=== PATIENT | female | born 2000 | race Caucasian/White ===

== ENCOUNTER 2020-01-12 21:50 | Emergency (ER) | payer OTHER ==
[2020-01-12] MEDS ORDERED: NORMAL SALINE 1000 ML 1,000 ML IV ONE (22:54)
[2020-01-12] MEDS ORDERED: ONDANSETRON HCL INJ/PF 4 MG/2 ML SDV IV ONE (22:56)
--- NOTE | 2020-01-12 23:03 | ER Document Report ---
ED General - General Chief Complaint: Nausea/Vomiting/Diarrhea Stated Complaint: NAUSEA/VOMITING Time Seen by Provider: 01/12/20 22:47 - HPI Notes: Patient is a 19-year-old female who presents to the emergency department for evaluation of nausea, vomiting, diarrhea. She states she was eating raw cookie dough yesterday. She started having nausea, vomiting, diarrhea. She states has had at least 20 episodes of each. Her emesis is non-bilious. She states she did see some red streaks in her last few episodes of emesis. She states she believes she seriously dehydrated. She has had nothing but watery diarrhea, with nearly every episode of vomiting. She has some crampy abdominal pain that happens right before her emesis. She denies any urinary symptoms. - Related Data Allergies/Adverse Reactions: No Known Allergies Allergy (Unverified 01/12/20 22:02) Home Medications: None Past Medical History - General Information source: Patient - Social History Smoking Status: Current Every Day Smoker Family History: Malignancy - Thyroid cancer, cervical cancer, Other - Rheumatoid arthritis Patient has suicidal ideation: No Patient has homicidal ideation: No Past Surgical History: Reports: Hx Adenoidectomy, Hx Myringotomy, Hx Tonsillectomy Review of Systems - Review of Systems Gastrointestinal: See HPI -: Yes All other systems reviewed and negative Physical Exam - Vital signs Vitals: Temp Pulse Resp BP Pulse Ox 99.9 F 112 H 16 137/76 H 94 01/12/20 22:01 01/12/20 22:01 01/12/20 22:01 01/12/20 22:01 01/12/20 22:01 - Notes Notes: Vital signs reviewed, please refer to chart. Head is normocephalic, atraumatic. Pupils equal round, reactive to light. Neck is supple without meningismus. Heart is regular rate and rhythm. Lungs are clear to auscultation bilaterally. Abdomen is soft, diffusely tender without rebound or guarding, normoactive bowel sounds throughout. Extremities without cyanosis, clubbing. Posterior calves are nontender. Peripheral pulses are equal. Skin is warm and dry. Patient is awake, alert, neurological exam is nonfocal. Course - Re-evaluation Re-evalutation: 01/12/20 23:01 Patient presents emergency department for evaluation of nausea, vomiting, diarrhea. Even if she has Salmonella from her cookie dough ingestion, she is young and healthy, this will likely be self-limited. We will give the patient some fluids, Zofran, and reassess. 01/13/20 00:30 Patient feeling significantly improved after fluids and Zofran. She was able to tolerate some p.o. ice water. Labs failed to reveal any signs of significant dehydration. We will send her home with a small amount of Zofran, instructions on nausea, vomiting, diarrhea, and close follow-up. She is to return to the ER with worsening. - Vital Signs Vital signs: Temp Pulse Resp BP Pulse Ox 99.9 F 112 H 16 137/76 H 94 01/12/20 22:01 01/12/20 22:01 01/12/20 22:01 01/12/20 22:01 01/12/20 22:01 - Laboratory Result Diagrams: 01/12/20 23:42 Laboratory results interpreted by me: 01/12/20 23:42 Glucose 123 H Calcium 10.8 H Discharge - Discharge Clinical Impression: Nausea vomiting and diarrhea Condition: Stable Disposition: HOME, SELF-CARE Instructions: Antinausea Medication ([facility]), Diarrhea, Nonspecific ([facility]), Vomiting ([facility]) Additional Instructions: Stay hydrated with small, frequent sips of fluids. Zofran as needed for significant nausea. Follow-up with primary care next week. If you develop worsening or new concerning symptoms of any sort, return immediately to the emergency department for evaluation.
[2020-01-13 00:07] LABS: ANION GAP 11 (5-19); BLOOD UREA NITROGEN 15 mg/dL (7-20); CALCIUM 10.8 mg/dL (8.4-10.2); CARBON DIOXIDE 28 mmol/L (22-30); CHLORIDE 101 mmol/L (98-107); GLUCOSE 123 mg/dL (75-110); POTASSIUM 4.3 mmol/L (3.6-5.0)
[2020-01-13] MEDS ORDERED: ONDANSETRON ODT 4 MG TAB (6 TAB/ER DISP) PO PRN (00:31)
[2020-01-13 00:40] VITALS: BP 126/62
== END 2020-01-13 00:42 | disposition home or self-care (01) ==
LOC: ER 21:50
DX: R11.2 Nausea with vomiting, unspecified (principal); R19.7 Diarrhea, unspecified; R10.9 Unspecified abdominal pain; F17.200 Nicotine dependence, unspecified, uncomplicated
CPT/HCPCS: 99284; 96361; 96374; 36415; 84703; 80048; J2405; J7030

== ENCOUNTER 2020-01-18 14:40 | Emergency (ER) | payer OTHER ==
--- NOTE | 2020-01-18 14:54 | ER Document Report ---
ED Medical Screen (RME) - General Chief Complaint: Abdominal Pain Stated Complaint: POSSIBLE SEMINELLA Time Seen by Provider: 01/18/20 14:51 Mode of Arrival: Ambulatory Information source: Patient Notes: Patient is a 19-year-old female presenting to the emergency department chief complaint of nausea, vomiting and diarrhea that is been ongoing since 01/11/2020. Patient reports she was seen here on the and told she may have Salmonella poisoning. Patient reports her symptoms have persisted since that time. Abdomen soft, nontender. I have greeted and performed a rapid initial assessment of this patient. A comprehensive ED assessment and evaluation of the patient, analysis of test results and completion of the medical decision making process will be conducted by additional ED providers. I have specifically instructed the patient or family members with the patient to immediately return to any nursing staff should anything change in the patient's condition or with their chief complaint. - Related Data Allergies/Adverse Reactions: No Known Allergies Allergy (Unverified 01/12/20 22:02) Past Medical History Past Surgical History: Reports: Hx Adenoidectomy, Hx Myringotomy, Hx Tonsillectomy Physical Exam - Vital signs Vitals: Temp Pulse Resp BP Pulse Ox 98.9 F 101 H 18 158/87 H 96 01/18/20 14:47 01/18/20 14:47 01/18/20 14:47 01/18/20 14:47 01/18/20 14:47 Course - Vital Signs Vital signs: Temp Pulse Resp BP Pulse Ox 98.9 F 101 H 18 158/87 H 96 01/18/20 14:47 01/18/20 14:47 01/18/20 14:47 01/18/20 14:47 01/18/20 14:47
[2020-01-18 15:33] LABS: ABSOLUTE BASOPHILS # (AUTO) 0.1 10^3/uL (0.0-0.2); ABSOLUTE EOSINOPHILS # (AUTO) 0.7 10^3/uL (0.0-0.6); ABSOLUTE LYMPHOCYTES (AUTO) 3.9 10^3/uL (0.5-4.7); ABSOLUTE MONOCYTES (AUTO) 1.2 10^3/uL (0.1-1.4); ABSOLUTE NEUT (AUTO) 5.9 10^3/uL (1.7-8.2); BASOPHILS % (AUTO) 0.8 % (0-2); EOSINOPHILS % (AUTO) 5.9 % (0-6); HEMATOCRIT 47.3 % (36.0-47.0); LYMPHOCYTES % (AUTO) 33.1 % (13-45); MEAN CORPUSCULAR HEMOGLOBIN 27.7 pg (27.0-33.4); MEAN CORPUSCULAR HGB CONC 33.8 g/dL (32.0-36.0); MEAN CORPUSCULAR VOLUME 82 fl (80-97); PLATELET COUNT 506 10^3/uL (150-450); RED BLOOD COUNT 5.77 10^6/uL (3.72-5.28); RED CELL DISTRIBUTION WIDTH 13.9 % (11.5-14.0); SEGMENTED NEUTROPHILS % (AUTO) 50.2 % (42-78); TOTAL CELLS COUNTED % (AUTO) 100 %; WHITE BLOOD COUNT 11.8 10^3/uL (4.0-10.5)
[2020-01-18 15:48] LABS: ALBUMIN 5.3 g/dL (3.7-5.6); ALKALINE PHOSPHATASE 91 U/L (50-135); ANION GAP 16 (5-19); ASPARTATE AMINO TRANSFERASE 48 U/L (5-30); BILIRUBIN,DIRECT 0.2 mg/dL (0.0-0.4); BILIRUBIN,TOTAL 0.8 mg/dL (0.2-1.3); BLOOD UREA NITROGEN 16 mg/dL (7-20); CALCIUM 10.6 mg/dL (8.4-10.2); CARBON DIOXIDE 25 mmol/L (22-30); CHLORIDE 98 mmol/L (98-107); GLUCOSE 94 mg/dL (75-110); TOTAL PROTEIN 8.3 g/dL (6.3-8.2)
[2020-01-18] MEDS: RINGERS SOLUTION,LACTATED 1,000 ML IV PRN ×2 (15:50→16:50)
--- NOTE | 2020-01-18 16:13 | ER Document Report ---
Entered by TIMUR ALANIZ SCRIBE 01/18/20 1536 Acting as scribe for:BERT BAPTISTE MD ED GI/ - General Chief Complaint: Diarrhea Stated Complaint: POSSIBLE SEMINELLA Time Seen by Provider: 01/18/20 14:51 Mode of Arrival: Ambulatory Information source: Patient Notes: This 19-year-old female patient presents to the emergency department today with complaints of continued diarrhea and vomiting. Patient was seen here on 01/12/2020 after eating raw cookie dough that was not meant to be edible. Her and her [id number] both ate this raw cookie dough and both began having diarrhea the next day. Patient was told she "probably had Salmonella" but was never tested for it. Patient states her [id number] has gotten better but she has continued to have this diarrhea and vomiting. The diarrhea has not been bloody. She states she noted a little bit of blood in it yesterday but overall it has not been a bloody diarrhea or bloody mucus diarrhea that would suggest a toxic diarrhea. - Related Data Allergies/Adverse Reactions: No Known Allergies Allergy (Unverified 01/12/20 22:02) Past Medical History - General Information source: Patient - Social History Smoking Status: Current Every Day Smoker Cigarette use (# per day): Yes Frequency of alcohol use: None Drug Abuse: None Lives with: Family Family History: Reviewed & Not Pertinent, Malignancy - Thyroid cancer, cervical cancer, Other - Rheumatoid arthritis Patient has suicidal ideation: No Patient has homicidal ideation: No - Medical History Medical History: Negative Past Surgical History: Reports: Hx Adenoidectomy, Hx Myringotomy, Hx Tonsillectomy Review of Systems - Review of Systems Constitutional: No symptoms reported EENT: No symptoms reported Cardiovascular: No symptoms reported Respiratory: No symptoms reported Gastrointestinal: See HPI, Diarrhea, Nausea, Vomiting Genitourinary: No symptoms reported Female Genitourinary: Last menstrual period - First period since August just started and the blood is brown in color., Irregular period Musculoskeletal: No symptoms reported Skin: No symptoms reported Hematologic/Lymphatic: No symptoms reported Neurological/Psychological: No symptoms reported -: Yes All other systems reviewed and negative Physical Exam - Vital signs Vitals: Temp Pulse Resp BP Pulse Ox 98.9 F 101 H 18 158/87 H 96 01/18/20 14:47 01/18/20 14:47 01/18/20 14:47 01/18/20 14:47 01/18/20 14:47 - Notes Notes: Physical Exam: General: Alert, appears well. HEENT: Normocephalic. Atraumatic. PERRL. Extraocular movements intact. Oropharynx clear. Mildly dry mucous membranes. Neck: Supple. Non-tender. Respiratory: No respiratory distress. Clear and equal breath sounds bilaterally. Cardiovascular: Regular rate and rhythm. Abdominal: Obese. Non-tender. No distension. Normal Bowel Sounds. Back: No gross abnormalities. Extremities: Moves all four extremities. Upper extremities: Normal inspection. Normal ROM. Lower extremities: Normal inspection. No edema. Normal ROM. Neurological: Normal cognition. AAOx4. Normal speech. Psychological: Normal affect. Normal Mood. Skin: Warm. Dry. Normal color. Course - Re-evaluation Re-evalutation: 01/18/20 17:47 Stool stool exam shows moderate WBCs. It will be cultured. She will be put on Septra DS twice daily for 5 days and recommended to start Pepto-Bismol due to the symptoms going on now for 7 days, no improvement, and relative dehydration. - Vital Signs Vital signs: Temp Pulse Resp BP Pulse Ox 98.9 F 101 H 18 158/87 H 96 01/18/20 14:51 01/18/20 14:47 01/18/20 14:47 01/18/20 14:47 01/18/20 14:47 - Laboratory Result Diagrams: 01/18/20 15:03 01/18/20 14:53 Laboratory results interpreted by me: 01/18/20 01/18/20 01/18/20 14:53 15:03 15:50 WBC 11.8 H RBC 5.77 H Hgb 16.0 H Hct 47.3 H Plt Count 506 H Absolute Eos (auto) 0.7 H Calcium 10.6 H AST 48 H ALT 67 H Total Protein 8.3 H Urine Protein >=500 H Urine Ketones 80 H Urine Blood LARGE H Urine Bilirubin SMALL H Stool for White Cells 01/18/20 15:57 WBC RBC Hgb Hct Plt Count Absolute Eos (auto) Calcium AST ALT Total Protein Urine Protein Urine Ketones Urine Blood Urine Bilirubin Stool for White Cells MODERATE H Discharge - Discharge Clinical Impression: Infectious diarrhea, Nausea, vomiting and diarrhea Condition: Stable Disposition: HOME, SELF-CARE Additional Instructions: Diarrhea Diarrhea means frequent, watery stools. There are many causes. Any problem that keeps the intestinal tract from absorbing water from the stool can lead to diarrhea. A sudden new diarrhea problem is usually caused by a virus, food sensitivity, toxic bacteria, or drugs. In this case, we expect the problem to go away soon. Testing is done only if you seem seriously ill from the diarrhea. If you have chronic diarrhea, or diarrhea that keeps coming back, we need to find out why. Chronic diarrhea can be due to inflammation of the bowels such as Crohn's disease or ulcerative colitis, food sensitivity such as intolerance to lactose or wheat protein, irritable bowel syndrome, and other problems. If your diarrhea is a significant problem but it's not clear why you have it, we'll refer you to a specialist for further testing. During an episode of diarrhea, drink small amounts (two to six ounces) of clear liquids (soft drinks, sport drinks, herb teas, broth, etc). Take fluids frequently to prevent dehydration. It's usually not a problem to take mild anti- diarrhea medication such as Kaopectate or Pepto-Bismol. As the diarrhea eases, advance to small amounts of bland food (mashed potato, toast) for 24 hours. Call the physician if blood appears in your vomit or stool, if vomiting lasts longer than 24 hours, if the abdominal pain worsens or becomes localized to one area, if you develop high fever, or if you become lightheaded and weak. Your lab work today suggests you have an infectious diarrhea. The stool was cultured and you will be contacted if there is a need to change your treatment. Drink plenty of cool clear liquids today, slowly advance your diet over the next few days. Take the medication as prescribed. Try Pepto-Bismol to help reduce the diarrhea. Follow-up with a local medical doctor if not improving. RETURN TO THE EMERGENCY ROOM IF ANY NEW OR WORSENING SYMPTOMS. Prescriptions: Sulfamethoxazole/Trimethoprim [Septra-Ds 800-160 mg Tablet] 1 tab PO BID #10 tablet I personally performed the services described in the documentation, reviewed and edited the documentation which was dictated to the scribe in my presence, and it accurately records my words and actions.
[2020-01-18 16:20] LABS: APPEARANCE,URINE CLOUDY; BILIRUBIN,URINE SMALL (NEGATIVE); COLOR,URINE AMBER; GLUCOSE, URINE NEGATIVE (NEGATIVE); KETONES,URINE 80 mg/dL (NEGATIVE); LEUKOCYTE ESTERASE,URINE NEGATIVE (NEGATIVE); NITRITE,URINE NEGATIVE (NEGATIVE); PROTEIN,URINE >=500 mg/dL (NEGATIVE); URINE SPECIFIC GRAVITY 1.034; UROBILINOGEN,URINE NEGATIVE mg/dL (<2.0)
[2020-01-18] MEDS ORDERED: DEXTROSE 5%-LACTATED RINGERS 1,000 ML IV ONE (17:04)
[2020-01-18] MEDS ORDERED: SULFAMETHOXAZOLE/TRIMETHOPRIM 800-160 MG TABLET PO ONE (17:52)
[2020-01-18 18:14] VITALS: BP 148/80
== END 2020-01-18 18:13 | disposition home or self-care (01) ==
LOC: ER 14:40
DX: A09 Infectious gastroenteritis and colitis, unspecified (principal); R11.2 Nausea with vomiting, unspecified; R19.5 Other fecal abnormalities; F17.210 Nicotine dependence, cigarettes, uncomplicated; E66.9 Obesity, unspecified
CPT/HCPCS: 99284; 96360; 96361; 36415; 87045; 89055; 83690; 85025; 81025; 80053; 81001; J7120; 87205